=== PATIENT | female | born 1995 | race Caucasian/White ===

== ENCOUNTER 2017-04-14 10:10 | Observation (INO) | payer BC ==
[2017-04-14] MEDS ORDERED: HYDROCODONE/ACETAMINOPHEN 5-325 MG TABLET PO ONE (10:23)
[2017-04-14] MEDS ORDERED: ONDANSETRON HCL 8 MG TABLET PO ONE (10:23)
--- NOTE | 2017-04-14 10:28 | ER Document Report ---
ED Medical Screen (RME) - General Chief Complaint: Abdominal Pain Stated Complaint: ABDOMINAL PAIN Time Seen by Provider: 04/14/17 10:16 Mode of Arrival: Ambulatory Information source: Patient Notes: 21-year-old female presents with complaints of umbilical hernia I have greeted and performed a rapid initial assessment of this patient. A comprehensive ED assessment and evaluation of the patient, analysis of test results and completion of the medical decision making process will be conducted by additional ED providers. PHYSICAL EXAMINATION: GENERAL: Well-appearing, well-nourished and in no acute distress. HEAD: Atraumatic, normocephalic. EYES: Pupils equal round extraocular movements intact, conjunctiva are normal. ENT: Nares patent NECK: Normal range of motion LUNGS: No respiratory distress Musculoskeletal: Normal range of motion NEUROLOGICAL: Normal speech, normal gait. PSYCH: Normal mood, normal affect. SKIN: Warm, Dry, normal turgor, no rashes or lesions noted. TRAVEL OUTSIDE OF THE [place] IN LAST 30 DAYS: No - Related Data Allergies/Adverse Reactions: No Known Allergies Allergy (Unverified 04/14/17 10:14) Past Medical History - Social History Chew tobacco use (# tins/day): No Frequency of alcohol use: None Drug Abuse: None Renal/ Medical History: Denies: Hx Peritoneal Dialysis Surgical Hx: Negative Physical Exam - Vital signs Vitals: Temp Pulse Resp BP Pulse Ox 98.2 F 84 16 133/89 H 95 04/14/17 10:14 04/14/17 10:14 04/14/17 10:14 04/14/17 10:14 04/14/17 10:14 Course - Vital Signs Vital signs: Temp Pulse Resp BP Pulse Ox 98.2 F 84 16 133/89 H 95 04/14/17 10:14 04/14/17 10:14 04/14/17 10:14 04/14/17 10:14 04/14/17 10:14
--- NOTE | 2017-04-14 10:38 | ER Document Report ---
ED General - General Chief Complaint: Abdominal Pain Stated Complaint: ABDOMINAL PAIN Time Seen by Provider: 04/14/17 10:16 Mode of Arrival: Ambulatory Notes: This is a 21-year-old patient with spontaneous umbilical hernia which has been present for quite some time. Patient states that normally she can reduce it on her own. Over the last 2 days has been able to reduce the hernia. Had a little bit of nausea and pain. Scheduled to see surgery soon. Requesting a more urgent follow-up with surgery. Denies any changes in bowel or bladder. No fever. Mild nausea but no vomiting. No back pain. No other associated signs or symptoms other than some periumbilical pain. TRAVEL OUTSIDE OF THE [place] IN LAST 30 DAYS: No - Related Data Allergies/Adverse Reactions: No Known Allergies Allergy (Unverified 04/14/17 10:14) Past Medical History - General Information source: Patient - Social History Smoking Status: Never Smoker Chew tobacco use (# tins/day): No Frequency of alcohol use: None Drug Abuse: None Family History: Reviewed & Not Pertinent Renal/ Medical History: Denies: Hx Peritoneal Dialysis Surgical Hx: Negative Review of Systems - Review of Systems Constitutional: No symptoms reported EENT: No symptoms reported Cardiovascular: No symptoms reported Respiratory: No symptoms reported Gastrointestinal: No symptoms reported, Abdominal pain, Diarrhea - Abdominal hernia that will not reduce, Nausea, Other Genitourinary: No symptoms reported Female Genitourinary: No symptoms reported Musculoskeletal: No symptoms reported Skin: No symptoms reported Hematologic/Lymphatic: No symptoms reported Neurological/Psychological: No symptoms reported Physical Exam - Vital signs Vitals: Temp Pulse Resp BP Pulse Ox 98.2 F 84 16 133/89 H 95 04/14/17 10:14 04/14/17 10:14 04/14/17 10:14 04/14/17 10:14 04/14/17 10:14 Interpretation: Normal - General General appearance: Appears well, Alert - HEENT Head: Normocephalic, Atraumatic Eyes: Normal Pupils: PERRL - Respiratory Respiratory status: No respiratory distress Chest status: Nontender Breath sounds: Normal Chest palpation: Normal - Cardiovascular Rhythm: Regular Heart sounds: Normal auscultation Murmur: No - Abdominal Inspection: Normal Distension: No distension Bowel sounds: Normal Tenderness: Nontender, Tender - Periumbilical area Organomegaly: No organomegaly Notes: There is a fairly large periumbilical hernia which is palpable. After pain medication was given and patient was lying on her back gentle pressure was used to reduce 80% of the hernia. There is still a small amount of tissue that was not able to be reduced. Uncertain whether this really represents hernia versus some omental tissue. - Back Back: Normal, Nontender - Extremities General upper extremity: Normal inspection, Nontender, Normal color, Normal ROM , Normal temperature General lower extremity: Normal inspection, Nontender, Normal color, Normal ROM , Normal temperature, Normal weight bearing. No: Etelvina's sign - Neurological Neuro grossly intact: Yes Cognition: Normal Orientation: AAOx4 Macarena Coma Scale Eye Opening: Spontaneous [place] Coma Scale Verbal: Oriented [place] Coma Scale Motor: Obeys Commands Macarena Coma Scale Total: 15 Speech: Normal Motor strength normal: LUE, RUE, LLE, RLE Sensory: Normal - Psychological Associated symptoms: Normal affect, Normal mood - Skin Skin Temperature: Warm Skin Moisture: Dry Skin Color: Normal Course - Re-evaluation Re-evalutation: 04/14/17 11:17 We will review the x-rays. Possibly consult with surgery. I do not at this time think the patient has a incarcerated or strangulate hernia. More likely this represents some omental tissue. 04/14/17 11:22 Dr. Deal with general surgery consulted. The surgeon wound will evaluate patient and I will follow recommendations. 04/14/17 12:31 Surgery is evaluated patient. Has incarcerated hernia. Will go to the OR at this time. Patient is n.p.o. IV established. Labs ordered. - Vital Signs Vital signs: Temp Pulse Resp BP Pulse Ox 98.2 F 84 16 133/89 H 95 04/14/17 10:14 04/14/17 10:14 04/14/17 10:14 04/14/17 10:14 04/14/17 10:14 - Diagnostic Test Radiology reviewed: Image reviewed - No acute pathology seen on x-ray Discharge - Discharge Clinical Impression: Umbilical hernia, incarcerated Condition: Good Disposition: ADMITTED OBSERVATION Admitting Provider: bradly Unit Admitted: OR
--- NOTE | 2017-04-14 11:03 | RADIOLOGY REPORT (SQ) ---
EXAM DESCRIPTION: ACUTE ABDOMEN SERIES COMPLETED DATE/TIME: 04/14/2017 10:53 am REASON FOR STUDY: umbilical hernia COMPARISON: None. NUMBER OF VIEWS: Three views. TECHNIQUE: Frontal chest, supine abdomen and upright/decubitus abdomen radiographic images acquired. LIMITATIONS: None. FINDINGS: CHEST: Lungs clear of infiltrates. FREE AIR: None. No abnormal gas collections. BOWEL GAS PATTERN: Nonobstructive pattern. No dilated loops or air fluid levels. CALCIFICATIONS: No suspicious calcifications. HARDWARE: None in the abdomen. SOFT TISSUES: No gross mass or suggestion of organomegaly. BONES: No acute fracture. No worrisome bone lesions. OTHER: No other significant finding. IMPRESSION: NO RADIOGRAPHIC EVIDENCE FOR ACUTE ABDOMINAL DISEASE. TECHNICAL DOCUMENTATION: JOB ID: [id number] [employer]- All Rights Reserved
[2017-04-14] MEDS ORDERED: NORMAL SALINE 1000 ML 1,000 ML IV PRN (12:33)
[2017-04-14] MEDS ORDERED: CEFAZOLIN 2 GM/D5W RTU 2 GM/50 ML RTUPB IV ONE ×2 (12:38→13:00)
[2017-04-14] MEDS ORDERED: MIDAZOLAM 2 MG/2 ML INJ ONE (12:46)
[2017-04-14] MEDS ORDERED: FENTANYL CITRATE INJ/PF 250 MCG/5 ML AMPULE ONE (12:46)
[2017-04-14] MEDS ORDERED: IBUPROFEN INJ 800 MG/8 ML VIAL IV ONE (12:47)
[2017-04-14] MEDS ORDERED: EPHEDRINE SULFATE INJ 50 MG/1 ML AMPULE ONE (12:47)
[2017-04-14] MEDS ORDERED: DEXMEDETOMIDINE INJ 80 MCG/20 ML VIAL IV ONE (12:47)
[2017-04-14] MEDS ORDERED: ACETAMINOPHEN 100 ML IV ONE (12:47)
[2017-04-14] MEDS ORDERED: PROPOFOL INJ 200 MG/20 ML VIAL IV ONE (12:47)
--- NOTE | 2017-04-14 13:08 | HISTORY AND PHYSICAL E ---
History and Physical NAME: LUI DINERO : 1995 AGE: 21Y ADMITTED: 04/14/2017 ROOM: CHIEF COMPLAINT: Umbilical pain. HISTORY OF PRESENT ILLNESS: This is a 21-year-old female who complained of umbilical and supraumbilical pains. It started for the past 2 days. Yesterday she vomited and today she has been nauseated since she woke up in the morning. She was seen in the emergency room where the hernia apparently was partially reduced. An x-ray of the abdomen was done which was unremarkable. PAST MEDICAL HISTORY: Denies any previous operations or medical problems. FAMILY HISTORY: Negative for diabetes. SOCIAL HISTORY: Denies smoking, drinking, or recreational drug use. ALLERGIES: No known. REVIEW OF SYSTEMS: Denies any headaches, sore throat, visual or hearing problems. Admits to having some cough in the past 2 days. Denies any shortness of breath or chest pains. GI as in HPI. Umbilical and supraumbilical pains since yesterday. Actually she has off and on umbilical pains for the past year and consulted primary care physician about 2 weeks ago and supposedly had been referred to our surgical clinical but she has not heard for the past 2 weeks and she said she will have a phone call from the clinic. Extremities no edema. No joint pains. No seizures. No easy fatigability. No easy bruisability or lymph node enlargement. Patient works in patient care and occasionally lifting patient's. PHYSICAL EXAMINATION: GENERAL: Well developed, morbidly obese 21-year-old female. Alert and oriented, complaining of umbilical pains. HEENT: Neck is supple. No thyromegaly. LUNGS: Clear. HEART: Regular sinus rhythm. ABDOMEN: Soft with umbilical hernia. I thought it was able to be reduced right in the umbilicus. However, she appears to have another possible hernia just above it that is quite difficult to reduce, I was unable to do so. It is quite tender on the remaining mass that cannot be reduced. EXTREMITIES: No edema. IMPRESSION: Incarcerated umbilical hernia. PLAN: Open reduction of umbilical hernia with possible use of mesh. Procedure has been explained to the patient as well as risk of infection and recurrence, also including bleeding and bowel injury. We will start IV antibiotic prophylaxis on her. DICTATING PHYSICIAN: DEVON KO M.D. [id number] PHY#: [id number] ID: [id number] JOB#: [id number] ACCT: [id number] cc:DEVON KO M.D. [facility], DARRYN Giordano
[2017-04-14 13:26] LABS: ABSOLUTE BASOPHILS # (AUTO) 0.1 10^3/uL (0.0-0.2); ABSOLUTE EOSINOPHILS # (AUTO) 0.2 10^3/uL (0.0-0.6); ABSOLUTE LYMPHOCYTES (AUTO) 2.2 10^3/uL (0.5-4.7); ABSOLUTE MONOCYTES (AUTO) 0.4 10^3/uL (0.1-1.4); ABSOLUTE NEUT (AUTO) 4.8 10^3/uL (1.7-8.2); EOSINOPHILS % (AUTO) 2.8 % (0-6); HEMATOCRIT 43.2 % (36.0-47.0); HGB HCT DIFFERENCE 1.8; LYMPHOCYTES % (AUTO) 29.1 % (13-45); MEAN CORPUSCULAR HEMOGLOBIN 31.9 pg (27.0-33.4); MEAN CORPUSCULAR HGB CONC 34.6 g/dL (32.0-36.0); MEAN CORPUSCULAR VOLUME 92 fl (80-97); MONOCYTES % (AUTO) 5.3 % (3-13); RED BLOOD COUNT 4.69 10^6/uL (3.72-5.28); RED CELL DISTRIBUTION WIDTH 12.2 % (11.5-14.0); SEGMENTED NEUTROPHILS % (AUTO) 61.8 % (42-78); WHITE BLOOD COUNT 7.7 10^3/uL (4.0-10.5)
[2017-04-14 13:33] LABS: PROTHROMBIN TIME 12.5 SEC (11.4-15.4)
[2017-04-14 13:44] LABS: ALANINE AMINOTRANSFERASE 43 U/L (9-52); ALBUMIN 4.7 g/dL (3.5-5.0); ALKALINE PHOSPHATASE 78 U/L (38-126); ANION GAP 12 (5-19); ASPARTATE AMINO TRANSFERASE 31 U/L (14-36); BILIRUBIN,DIRECT 0.3 mg/dL (0.0-0.4); BILIRUBIN,TOTAL 0.4 mg/dL (0.2-1.3); BLOOD UREA NITROGEN 12 mg/dL (7-20); CALCIUM 9.8 mg/dL (8.4-10.2); CARBON DIOXIDE 30 mmol/L (22-30); CHLORIDE 102 mmol/L (98-107); CREATININE RESULT 0.73 mg/dL (0.52-1.25); GLUCOSE 99 mg/dL (75-110); POTASSIUM 4.8 mmol/L (3.6-5.0); SODIUM 144.4 mmol/L (137-145); TOTAL PROTEIN 7.6 g/dL (6.3-8.2)
[2017-04-14] MEDS ORDERED: ONDANSETRON HCL INJ/PF 4 MG/2 ML SDV IV PRN (14:21)
[2017-04-14] MEDS ORDERED: MEPERIDINE HCL/PF INJ 25 MG/1 ML DISP.SYRIN IV PRN (14:21)
[2017-04-14] MEDS ORDERED: DIPHENHYDRAMINE HCL 50 MG/ML VIAL IV PRN (14:21)
[2017-04-14] MEDS ORDERED: FENTANYL CITRATE INJ/PF 100 MCG/2 ML AMPUL IV PRN ×3 (14:21)
[2017-04-14] MEDS ORDERED: PROMETHAZINE HCL INJ 25 MG/1 ML VIAL IV PRN ×2 (14:21)
[2017-04-14] MEDS ORDERED: MORPHINE SULFATE 10 MG/ML INJ IV PRN (14:21)
[2017-04-14] MEDS ORDERED: LIDOCAINE 2% INJ-PF (20 MG/ML) 10 ML AMPUL ONE (14:40)
[2017-04-14] MEDS ORDERED: GLYCOPYRROLATE INJ 0.4 MG/2 ML VIAL ONE (14:40)
[2017-04-14] MEDS ORDERED: ONDANSETRON HCL INJ/PF 4 MG/2 ML SDV ONE (14:40)
[2017-04-14] MEDS ORDERED: SUCCINYLCHOLINE CHLORIDE INJ 200 MG/10 ML VIAL ONE (14:40)
[2017-04-14] MEDS ORDERED: DEXAMETHASONE SOD PHOSPHATE INJ 4 MG/1 ML VIAL ONE (14:40)
[2017-04-14] MEDS ORDERED: CEFAZOLIN 2 GM/D5W RTU 2 GM/50 ML RTUPB IV SCH (16:15)
[2017-04-14] MEDS: MORPHINE SULFATE 10 MG/ML INJ IV PRN ×2 (17:30→20:37)
--- NOTE | 2017-04-14 17:37 | OPERATIVE REPORT E ---
Operative Report NAME: LUI DINERO : 1995 AGE: 21Y DATE OF SURGERY: ROOM: 211 PREOPERATIVE DIAGNOSIS: INCARCERATED UMBILICAL HERNIA. POSTOPERATIVE DIAGNOSIS: INCARCERATED UMBILICAL HERNIA. OPERATION: Repair and reduction of incarcerated umbilical hernia and repair using mesh. SURGEON: DEVON KO M.D. ANESTHESIA: General INDICATIONS: This is a 21-year-old female who has been complaining of abdominal pains off and on for the past few months. Patient has been complaining of progressive pains for the past 2 days. 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 She did have following this an episode of vomiting and then went to the emergency room today with persistent abdominal pains and nausea. Umbilical hernia was partially reduced by the emergency room physician. I was able to reduce it completely in the ER but when the patient coughed, it would come back. Because of this, patient was taken to the operating room for repair of incarcerated umbilical hernia. PROCEDURE: After adequate general anesthesia, patient was placed in the supine position and the abdomen prepped and draped in the usual sterile fashion. An appropriate time out was called. Next, a midline incision was made at the mid epigastric area down to just below the umbilical area. Midline was then identified and sac of the hernia also noted and dissected around the umbilicus. There is a very small opening and when the sac was opened, no evidence of bowel noted or fluid around the sac and the sac is slightly edematous indicating incarceration. The hernia may have been incarcerated, during operation may have spontaneously reduced. At any rate, the sac was opened down close to the fascial level. The sac was then twisted and suture ligated at the base with 2-0 Vicryl and then transected just above the suture. The neck of the sac roughly measured about 1.5 cm at most. The sac was then pushed down inside the abdominal cavity and blunt dissection around the area just below the fascia was then performed. No obvious major bleeding was noted. Next the rest of the fascia was then inspected proximally and there were at least two real small, maybe fascial defect roughly about 2 mm with small fatty tissue through it. This was then closed with interrupted suture using 2-0 Prolene. No definite evidence of hernia formation at these sites. Next, a 2.5-inch Ventralex mesh was then put inside the abdominal cavity just above the sac and below the fascia and sutured to the fascia on the four corners using 0 Vicryl sutures. I made sure that the mesh was flat onto the abdominal wall fascia. Next the fascial defect at the umbilicus was then closed with [id number] sutures using 2-0 Vicryl. An attempt was done to close the *------* umbilicus but it appears to be too tight because of the thick subcu fat and this was then subsequently released. Next Priya's fascia was then reapproximated and connected to the umbilical area and also to the abdominal wall end of the umbilicus recreating the umbilicus. This made the umbilicus more natural and not too deep into the fascia. Next the subcu was further reapproximated with 3-0 Vicryl in interrupted fashion and the skin closed with ramonita. Needle, instrument, and sponge count were all correct. Estimated blood loss was about 10 mL. Sterile dressings were then placed over the operative site. The patient was then brought to the PACU in satisfactory condition. DICTATING PHYSICIAN: DEVON KO M.D. [id number] PHY#: [id number] ID: [id number] JOB#: [id number] ACCT: [id number] cc:DEVON KO M.D. >
--- NOTE | 2017-04-14 19:48 | OPERATIVE REPORT E ---
Operative Report MTDD
[2017-04-15] MEDS: MORPHINE SULFATE 10 MG/ML INJ IV PRN (01:03)
[2017-04-15] MEDS: OXYCODONE-ACETAMINOPHEN 5-325 MG TABLET PO PRN ×2 (04:03→08:09)
[2017-04-15 09:10] VITALS: BP 129/79
== END 2017-04-15 09:36 | disposition home or self-care (01) ==
LOC: ER 10:10 → EH 13:13 → 2N 16:39
PROVIDERS: ADMIT Surgery; ATTEND Surgery
PROC: 0WUF0JZ Supplement Abdominal Wall with Synthetic Substitute, Open Approach (ICD-10-PCS; principal; 2017-04-14 13:30)
DX: K42.0 Umbilical hernia with obstruction, without gangrene (principal); R05 Cough
CPT/HCPCS: 99285; 36415; 84702; 85025; 85610; 80053; 88302 ×2; 74022; 49587; G0378 ×2; J2250; J1100; J3490 ×3; J3010; J2270 ×2; S0119; J0330; J2405; J7030; J2704; J0690 ×2; J0131; J1741; 750